=== PATIENT | female | born 1960 | race American Indian/Alaskan Native ===

== ENCOUNTER 2018-09-27 07:59 | Inpatient (IN) | payer OTHER ==
[2018-09-02 13:22] VITALS: BMI 26.2
[2018-09-27] MEDS ORDERED: Lactated Ringer's 1,000 ML IV ONE ×3 (09:00→18:00)
--- NOTE | 2018-09-27 09:20 | CP.PCM.HP ---
History of Present Illness - History of Present Illness History of Present Illness: Orthopedic note Dr. Allen 58F complains of worsening right hip pain failed conservative mgmt and elected for THR. Patient had preoperative clearance by PMD Dr. Montanez, also was seen by Dr. Brito with normal echo and optimized per cardiology, also seen by Dr. Jamison found to have benign neutropenia and cleared for OR. PMH: glaucoma, cataracts, macular degen PSH: cyst excision scalp, cataract All: PCN No recent illness, no history of bleeding disorder or blood clots, no hx CA/CAD, CVA, stents, seizure disorder Present on Admission - Present on Admission Any Indicators Present on Admission: No Review of Systems - Review of Systems All systems: reviewed and no additional remarkable complaints except - Musculoskeletal Musculoskeletal: As Per HPI Past Patient History - Past Medical History & Family History Past Medical History?: Yes Past Family History: Reviewed and not pertinent - Past Social History Smoking Status: Never Smoked - CARDIAC Hx Cardiac Disorders: No - PULMONARY Hx Respiratory Disorders: No - NEUROLOGICAL Hx Neurological Disorder: No - HEENT Hx HEENT Problems: Yes Hx Cataracts: Yes Hx Glaucoma: Yes Hx Macular Degeneration: Yes - RENAL Hx Chronic Kidney Disease: No - ENDOCRINE/METABOLIC Hx Endocrine Disorders: No - HEMATOLOGICAL/ONCOLOGICAL Hx Blood Disorders: No - INTEGUMENTARY Hx Dermatological Problems: No - MUSCULOSKELETAL/RHEUMATOLOGICAL Hx Musculoskeletal Disorders: Yes Hx Arthritis: Yes (general,hips) - GASTROINTESTINAL Hx Gastrointestinal Disorders: No - GENITOURINARY/GYNECOLOGICAL Hx Genitourinary Disorders: No - PSYCHIATRIC Hx Psychophysiologic Disorder: No - SURGICAL HISTORY Hx Surgeries: Yes (scalp cyst excision) Hx Cataract Extraction: Yes (right) Hx Eye Surgery: Yes Other/Comment: cyst on scalp - ANESTHESIA Hx Anesthesia: Yes Hx Anesthesia Reactions: No Meds Allergies/Adverse Reactions: Allergies Allergy/AdvReac Type Severity Reaction Status Date / Time Penicillins Allergy RASH Verified 09/27/18 09:04 Physical Exam - Constitutional Appears: Well, No Acute Distress - Head Exam Head Exam: ATRAUMATIC - Neck Exam Neck exam: Positive for: Full Rom, Normal Inspection - Respiratory Exam Respiratory Exam: NORMAL BREATHING PATTERN - Cardiovascular Exam Additional comments: +ROM ankle/toes/sensation intact, +DP/PT Pulses, calves soft NT neg homans - Expanded Lower Extremities Exam Right Hip exam: shortening Ankle exam: FULL ROM, NORMAL INSPECTION - Neurological Exam Neurological exam: Alert, Oriented x3 - Psychiatric Exam Psychiatric exam: Normal Affect, Normal Mood - Skin Skin Exam: Dry, Intact, Normal Color, Warm Results - Impressions Impression: Patient Name / ID : JOANNA BOWEN / [id number] Exam Date : 08/06/2018 09:36:30 ( Approved ) Study Comment : Sex / Age : F / 58Y Creator : Garrick Mcintyre MD Dictator : Garrick Mcintyre MD [employer] Sawyer : Cold Water Machine Operator : Garrick Mcintyre MD Approver2 : Report Date : 08/09/2018 14:12:48 My Comment : Date of service: 08/06/2018 PROCEDURE: CT RIGHT HIP WITHOUT CONTRAST HISTORY: [facility] M16.11 COMPARISON: None available. TECHNIQUE: A volumetric CT acquisition through the right hip joint was performed and high- resolution with reformatted dataset provided using various algorithms in multiple planes. Intravenous contrast was not administered as per referring physician request and protocol. Radiation dose:Total exam DLP = 1105.47 mGy-cm. This CT exam was performed using one or more of the following dose reduction techniques: Automated exposure control, adjustment of the mA and/or kV according to patient size, and/or use of iterative reconstruction technique. FINDINGS: Late stage osteoarthritis of the right hip joint identified including mild to moderate protrusio. There is a centrally no residual joint space remaining and extensive subchondral cyst formation is appreciated involving both sides of the right hip joint. Gross osteophyte development is appreciated at superior and inferior margins of the right hip joint. No fracture is seen throughout the pelvis right or left hip joints. [id number]-[id number] left hip osteoarthritis is appreciated with moderate to severe bilateral sacroiliac osteoarthritis present. No destructive bony lesions appreciated exclusive of osteoarthritis pattern described above throughout the pelvic joints. Iliac bones otherwise appear intact as well as the sacrum. Diffuse osteopenia indicates an element of osteoporosis most likely but clinical correlation is required. Local soft tissues appear diffusely unremarkable extrinsic to the pelvis. However, within the pelvis, nonacute sigmoid diverticulosis identified and partially calcified exophytic fibroid seen related to the lower uterine segment uterus anteriorly. Note is made of advanced osteoarthritis involving the bilateral knees with the medial and patellofemoral compartments most severely affected. No definite fracture or dislocation identified throughout the examination. IMPRESSION: 1. Late stage osteoarthritis right hip joint including [id number] protrusio. No acute fracture or dislocation. 2. Liju-an-xgaccwoa left hip joint osteoarthritis with moderate to severe bilateral sacroiliac degenerative change. 3. Advanced tricompartmental osteoarthritis bilateral knees, symmetric. 4. soft tissue findings as discussed above. Assessment & Plan (1) Primary osteoarthritis of right hip Assessment and Plan: NPO for OR T&C medical notes and labs on chart, reviewed Status: Acute (2) Intrapelvic protrusion of right acetabulum Status: Acute
[2018-09-27 09:22] LABS: BASO % 0.8 % (0.0-2.0); EOS # 0.1 K/uL (0.0-0.7); EOS % 1.4 % (0.0-4.0); HEMOGLOBIN 12.8 g/dL (12.0-16.0); LYMPH % 25.7 % (20.0-40.0); MEAN CELL VOLUME 96.6 fl (81.0-99.0); MEAN CORPUSCULAR HGB CONC 33.1 g/dL (33.0-37.0); MEAN PLATELET VOLUME 8.6 fl (7.2-11.7); MONO # 0.4 K/uL (0.0-0.8); MONO % 10.7 % (0.0-10.0); NEUT # 2.5 K/uL (1.8-7.0); NEUT % 61.4 % (50.0-75.0); RBC 4.01 Mil/uL (3.80-5.20); RED CELL DISTRIBUTION WIDTH 13.9 % (11.5-14.5); WHITE BLOOD COUNT 4.1 K/uL (4.8-10.8)
[2018-09-27 09:41] LABS: BLOOD UREA NITROGEN 10 mg/dl (7-17); CALCIUM 9.8 mg/dL (8.4-10.2); GFR NON-AFRICAN AMERICAN > 60
[2018-09-27 10:20] LABS: INR 1.2; PROTHROMBIN TIME 13.1 Seconds (9.8-13.1)
[2018-09-27 10:21] LABS: PARTIAL THROMBOPLASTIN TIME 29.3 Seconds (25.6-37.1)
[2018-09-27] MEDS ORDERED: Bacitracin Ointment 30 GM TUBE ONE (13:01)
[2018-09-27] MEDS ORDERED: Bisacodyl 5mg EC Tab PO PRN (13:02)
[2018-09-27] MEDS ORDERED: Oxycodone/Acetaminophen 5/325 mg Tab PO PRN ×3 (13:08→13:09)
[2018-09-27] MEDS ORDERED: Sodium Chloride 0.9% 1,000 ML IV SCH (13:15)
[2018-09-27] MEDS ORDERED: Bupivacaine 0.5% 50 ML IJ ONE (15:10)
[2018-09-27] MEDS ORDERED: Sodium Chloride 0.9% Inj (10mL) IV ONE (15:10)
[2018-09-27] MEDS ORDERED: EPINEPHrine 1 mg/ml (1:1000) Inj IM ONE (15:10)
[2018-09-27] MEDS ORDERED: EPINEPHrine 1 mg/ml (1:1000) Inj ONE (15:11)
[2018-09-27] MEDS ORDERED: Morphine 1 mg/ml preservative-free Inj(Duramorph) ONE (15:11)
[2018-09-27] MEDS ORDERED: Bupivacaine 0.5% Inj(30mL) ONE (15:11)
[2018-09-27] MEDS ORDERED: Sodium Chloride 0.9% 20 ML IV ONE (15:11)
--- NOTE | 2018-09-27 16:01 | PCM.SURG1 ---
Surgeon's Initial Post Op Note - Surgeon's Notes Surgeon: Krystal Allen MD Osha Inspector: Marquez Saucedo PA-C; Anjana Le PA-C Type of Anesthesia: General Endo Pre-Operative Diagnosis: Right hip OA Operative Findings: see op report Post-Operative Diagnosis: same as pre-op dx Operation Performed: R THR Specimen/Specimens Removed: right hip femoral head and soft tissue Estimated Blood Loss: EBL {In ML}: 400 Date of Surgery/Procedure: 09/27/18 Time of Surgery/Procedure: 14:30
[2018-09-27] MEDS ORDERED: Dexamethasone 4 mg/1 ml IVP PRN (16:22)
[2018-09-27] MEDS ORDERED: HYDROmorphone 0.5 mg/0.5 ml ISec IVP PRN (16:22)
[2018-09-27] MEDS ORDERED: Naloxone 0.4 mg/ml Inj (Adult) IVP PRN (16:25)
[2018-09-27] MEDS ORDERED: Lactated Ringer's 1,000 ML IV SCH (16:30)
--- NOTE | 2018-09-27 17:58 | CP.PCM.PN ---
Subjective - Date & Time of Evaluation Date of Evaluation: 09/27/18 Time of Evaluation: 22:22 - Subjective Subjective: 58 yo admitted for R THR 2 to severe osteoarthritis Objective - Vital Signs/Intake and Output Vital Signs (last 24 hours): Temp Pulse Resp BP Pulse Ox 96.5 F L 75 12 183/84 H 99 09/27/18 16:05 09/27/18 10:05 09/27/18 10:05 09/27/18 10:05 09/27/18 10:05 Intake and Output: 09/27/18 09/27/18 06:59 18:59 Intake Total 1700 Balance 1700 - Medications Medications: Current Medications Aspirin (Aspirin) 325 mg PO BID [facility] Bisacodyl (Dulcolax) 10 mg PO HS PRN PRN Reason: Constipation Celecoxib (Celebrex) 200 mg PO DAILY [facility] Dexamethasone (Decadron Inj) 4 mg IVP ONCE PRN PRN Reason: Nausea/Vomiting Stop: 09/27/18 18:23 Docusate Sodium (Colace) 100 mg PO BID [facility] Hydromorphone HCl (Dilaudid) 0.5 mg IVP Q5M PRN PRN Reason: Pain, severe (8-10) Stop: 09/27/18 18:22 Hydromorphone HCl (Dilaudid 0.2 Mg/Ml [facility]) 0 mg IV PRN PRN; Protocol PRN Reason: Pain, severe (8-10) Clindamycin Phosphate (Cleocin) 600 mg in 50 mls @ 100 mls/hr IVPB Q8H [facility]; Protocol Sodium Chloride (Sodium Chloride 0.9%) 1,000 mls @ 60 mls/hr IV .[id number] [facility] Stop: 09/28/18 05:54 Lactated Ringer's (Lactated Ringer's) 1,000 mls @ 125 mls/hr IV .Q8H [facility] Ketorolac Tromethamine (Toradol) 15 mg IVP Q6 [facility] Stop: 09/29/18 10:01 Metoclopramide HCl (Reglan) 10 mg IVP ONCE PRN PRN Reason: Nausea/Vomiting Stop: 09/27/18 18:23 Naloxone HCl (Narcan) 0.1 mg IVP Q2M PRN PRN Reason: Sedation Ondansetron HCl (Zofran Inj) 4 mg IVP Q6 PRN PRN Reason: Nausea/Vomiting Ondansetron HCl (Zofran Inj) 4 mg IVP ONCE PRN PRN Reason: Nausea/Vomiting Stop: 09/27/18 18:23 Oxycodone HCl (Oxycontin Extended Release Tab) 10 mg PO Q12 [facility] Stop: 09/30/18 21:01 Oxycodone/Acetaminophen (Percocet 5/325 Mg Tab) 1 tab PO Q4 PRN PRN Reason: Pain, Mild (1-3) Stop: 09/30/18 13:09 Oxycodone/Acetaminophen (Percocet 5/325 Mg Tab) 2 tab PO Q4 PRN PRN Reason: Pain, moderate (4-7) Stop: 09/30/18 13:10 Oxycodone/Acetaminophen (Percocet 5/325 Mg Tab) 2 tab PO Q4 PRN PRN Reason: Pain, severe (8-10) Stop: 09/30/18 13:10 - Labs Labs: 09/27/18 09:14 09/27/18 09:14 PT 13.1 Seconds (9.8-13.1) 09/27/18 09:30 INR 1.2 09/27/18 09:30 APTT 29.3 Seconds (25.6-37.1) 09/27/18 09:30 - Respiratory Exam Respiratory Exam: Wheezes, NORMAL BREATHING PATTERN - Cardiovascular Exam Cardiovascular Exam: REGULAR RHYTHM - GI/Abdominal Exam GI & Abdominal Exam: Normal Bowel Sounds Assessment and Plan - Assessment and Plan (Free Text) Assessment: Osteoarthritis severe R THR Hx benign neutrpenia
[2018-09-27] MEDS ORDERED: Influenza Vaccine (5 YR UP)/PF 60 MCG/0.5 ML SYR IM ONE (19:41)
[2018-09-27] MEDS ORDERED: Pneumococcal 23-Valent Vaccine IM ONE (19:43)
[2018-09-27] MEDS ORDERED: Clindamycin 600mg/50ml D5W 600 MG/50 ML VIAL IVPB SCH (20:00)
--- NOTE | 2018-09-27 20:38 | CARD ---
APPROVED REPORT Date of service: 09/27/2018 EKG Measurement Heart [id number] NV 134P [id number] <Conclusion> Ectopic atrial rhythm Voltage criteria for left ventricular hypertrophy Abnormal ECG
[2018-09-27] MEDS: oxyCODONE 10 mg ER Tab (oxyCONTIN) PO SCH (21:00)
[2018-09-27] MEDS: Clindamycin 600mg/50ml D5W 600 MG/50 ML VIAL IVPB SCH (22:12)
--- NOTE | 2018-09-28 00:47 | OP ---
PROCEDURE DATE: 09/27/2018 SURGEON: Krystal Allen MD MACHINE ICER: Marquez Saucedo PA-C PREOPERATIVE DIAGNOSIS: Right hip protrusio with advanced osteoarthritis. POSTOPERATIVE DIAGNOSIS: Right hip protrusio with advanced osteoarthritis. PROCEDURE: Right total hip replacement. IMPLANTS SIZE: Platter Accolade II 52 mm cup, size 2 stem with standard offset, MDM dual mobility liner with 0 neck length. ANESTHESIA TYPE: General. ESTIMATED BLOOD LOSS: 300 mL. COMPLICATIONS: None. HISTORY: Patient with longstanding history of right hip pain refractory of conservative management. X-ray had shown significant loss of joint space. After the failure of extensive conservative management, I had offered the patient the treatment option of total hip replacement. I reviewed the risk and benefits of the surgery with the patient in detail. The risks include, but not limited to bleeding, infection, nerve vessel damage, continuous pain, blood loss, instability, dislocation, iatrogenic fracture, blood clots, need for further surgery, and even . The patient fully understood the risks and benefits and opted to proceed. Patient underwent necessary preoperative medical workup and once medically cleared, was scheduled for the procedure. DESCRIPTION OF PROCEDURE: On the day of the surgery, the patient was admitted to preoperative holding area. A laterality sheet was completed, confirming correct operative site. An informed consent was signed from the patient and the correct operative hip was marked. Patient was brought into the operating room table. He underwent general anesthesia. Afterwards, the patient was placed on the operating room table in lateral decubitus position. All the bony prominences were well padded and an axillary roll was also placed. The hip was draped and prepped in the standard sterile manner. Timeout was completed, confirming correct operative site. We proceeded with Navigation assisted total hip replacement. Two pins were placed in the iliac crest to attach the antenna. Additional checkpoint was placed on the greater trochanter and on top of the acetabular roof. We utilized a standard postero-lateral approach. Using a #10 blade, a skin incision was made. The soft tissue dissection was taken down until the IT band fascia was identified incised along it's fibers. The short external rotators were exposed and excised with the capsule. It was tagged wit heavy sutures preserved for a later repair. Afterwards, the hip was dislocated and proposed neck cut was made. The Acetabulum was exposed using standard retractors. The remnant of torn labrum was excised along with pulvinar. The acetabulum was reamed using motorized reamers to the size that provide adequate depth and coverage. Next, size 52 cup was securely fixed in to the acetabular socket in appropriate version and inclination. A polyethylene liner was secured in to the acetabular cup. The femoral canal was exposed using standard retractors. Using the box chisel, lateral femoral neck was removed. Femoral canal was broached up to size 2 stem, which provide a secure fit and adequate fill of femoral canal. A standard offset trial neck was secured onto the broach. Different trial heads with variable neck lengths were secured onto the trial neck. The hip was reduced and taken through extensive range of motion to test stability, soft tissue tensioning and leg length. It was noted the dual mobility liner ceramic head with 0 neck length provide adequate stability, soft tissue tensioning and length. Next, size 2 stem with a standard offset was securely fixed into the femoral canal. Then a 36 mm ceramic head with dual mobility liner with 0 neck length was secured onto the neck of femoral stem. Hip was reduced and taken through final range of motion to assess for stability, soft tissue tensioning and leg length which was found to be satisfactory. Finally, the wound was copiously irrigated using pulse lavage solution. All loose bodies were removed. The short external rotators were repaired to greater trochanter using drill holes and heavy sutures. IT band fascia was tightly closed using heavy sutures and rest the wound was closed standard manner. Sterile dressing was applied. Patient was transferred to stretcher. Post-op instructions included posterior hip precautions. During this procedure, I was assisted by Marquez Saucedo PA-C, who assisted in positioning the patient on the operating room table as well as transferring the patient from the operating room table to the recovery room stretcher. In addition, Marquez Saucedo PA-C assisted me during the actual operative procedure by positioning, protecting critical neurovascular structures, exposure of the joint, and proper positioning of the implants. The presence of Marquez Saucedo PA-C as my operative admissions assistant was medically necessary to ensure the utmost safety of the patient in the pre, intra-, and post-operative periods. Imran Alejandro, MD
[2018-09-28] MEDS ORDERED: Simethicone 40 mg/0.6 ml Liquid (30 ml) PO PRN (01:54)
[2018-09-28] MEDS ORDERED: Simethicone 80 mg Chewtab PO PRN (02:01)
[2018-09-28] MEDS: Clindamycin 600mg/50ml D5W 600 MG/50 ML VIAL IVPB SCH ×3 (06:17→22:18)
[2018-09-28 07:48] LABS: HEMOGLOBIN 9.8 g/dL (12.0-16.0); MEAN CELL VOLUME 95.8 fl (81.0-99.0); MEAN CORPUSCULAR HEMOGLOBIN 32.7 pg (27.0-31.0); MEAN CORPUSCULAR HGB CONC 34.1 g/dL (33.0-37.0); RBC 3.01 Mil/uL (3.80-5.20); RED CELL DISTRIBUTION WIDTH 13.5 % (11.5-14.5); WHITE BLOOD COUNT 5.9 K/uL (4.8-10.8)
[2018-09-28 08:09] LABS: BLOOD UREA NITROGEN 12 mg/dl (7-17); CALCIUM 8.4 mg/dL (8.4-10.2); GFR NON-AFRICAN AMERICAN > 60
[2018-09-28] MEDS: oxyCODONE 10 mg ER Tab (oxyCONTIN) PO SCH ×2 (09:22→21:00)
--- NOTE | 2018-09-28 10:34 | RAD ---
PROCEDURE: Right Hip Radiographs. HISTORY: PT.IN OR COMPARISON: Pelvis CT 08/06/2018. FINDINGS: BONES: Interval right total replacement is identified. Hardware appears in good apparent position. Protrusio bone deformity is again evident at the right hip acetabulum with none at the left. JOINTS: Mild degenerative joint disease left hip joint, moderate bilateral sacroiliac joints. SOFT TISSUES: Popcorn like calcification at the right hemipelvis soft tissues may reflect exophytic fibroid or other pathology. OTHER FINDINGS: None. IMPRESSION: Interval right hip replacement with hardware in good apparent position. No acute fracture or dislocation either hip joint as imaged.
--- NOTE | 2018-09-28 13:19 | CP.PCM.PN ---
Subjective - Date & Time of Evaluation Date of Evaluation: 09/28/18 Time of Evaluation: 12:45 - Subjective Subjective: 58 yo F s/p RTHR POD#1 Pt seen and examined sitting in chair, in NAD Pt denies any current rt hip pain Pt reports is walking well with PT Pt denies SOB, chest pain, N/V/D, numbness/tingling RLE Objective - Vital Signs/Intake and Output Vital Signs (last 24 hours): Temp Pulse Resp BP Pulse Ox 98.3 F 76 20 117/76 98 09/28/18 09:00 09/28/18 09:00 09/28/18 09:00 09/28/18 09:00 09/28/18 09:00 - Medications Medications: Current Medications Bisacodyl (Dulcolax) 10 mg PO HS PRN PRN Reason: Constipation Celecoxib (Celebrex) 200 mg PO DAILY [facility] Last Admin: 09/28/18 09:22 Dose: 200 mg Docusate Sodium (Colace) 100 mg PO BID [facility] Last Admin: 09/28/18 09:22 Dose: 100 mg Enoxaparin Sodium (Lovenox) 40 mg SC ONCE ONE; Protocol Stop: 09/28/18 17:01 Enoxaparin Sodium (Lovenox) 40 mg SC DAILY [facility]; Protocol Hydromorphone HCl (Dilaudid 0.2 Mg/Ml Non Ferrous Material Handler) 0 mg IV PRN PRN; Protocol PRN Reason: Pain, severe (8-10) Last Admin: 09/27/18 18:30 Dose: 0.2 mg Lactated Ringer's (Lactated Ringer's) 1,000 mls @ 125 mls/hr IV .Q8H [facility] Last Admin: 09/28/18 00:30 Dose: Not Given Clindamycin Phosphate (Cleocin) 600 mg in 50 mls @ 100 mls/hr IVPB Q8@0600,1400,2200 [facility]; Protocol Last Admin: 09/28/18 06:17 Dose: 100 mls/hr Ketorolac Tromethamine (Toradol) 15 mg IVP Q6 [facility] Stop: 09/29/18 10:01 Last Admin: 09/28/18 11:49 Dose: Not Given Naloxone HCl (Narcan) 0.1 mg IVP Q2M PRN PRN Reason: Sedation Ondansetron HCl (Zofran Inj) 4 mg IVP Q6 PRN PRN Reason: Nausea/Vomiting Oxycodone HCl (Oxycontin Extended Release Tab) 10 mg PO Q12 [facility] Stop: 09/30/18 21:01 Last Admin: 09/28/18 09:22 Dose: 10 mg Oxycodone/Acetaminophen (Percocet 5/325 Mg Tab) 1 tab PO Q4 PRN PRN Reason: Pain, Mild (1-3) Stop: 09/30/18 13:09 Oxycodone/Acetaminophen (Percocet 5/325 Mg Tab) 2 tab PO Q4 PRN PRN Reason: Pain, moderate (4-7) Stop: 09/30/18 13:10 Oxycodone/Acetaminophen (Percocet 5/325 Mg Tab) 2 tab PO Q4 PRN PRN Reason: Pain, severe (8-10) Stop: 09/30/18 13:10 Simethicone (Mylicon Chew Tab) 80 mg PO Q8 PRN PRN Reason: Flatulence Last Admin: 09/28/18 02:12 Dose: 80 mg - Labs Labs: 09/28/18 05:30 09/28/18 05:30 PT 13.1 Seconds (9.8-13.1) 09/27/18 09:30 INR 1.2 09/27/18 09:30 APTT 29.3 Seconds (25.6-37.1) 09/27/18 09:30 - Constitutional Appears: Well, No Acute Distress - Respiratory Exam Respiratory Exam: Clear to Ausculation Bilateral, NORMAL BREATHING PATTERN - Cardiovascular Exam Cardiovascular Exam: REGULAR RHYTHM, RRR - Extremities Exam Additional comments: RLE: Hip dressing C/D/I Abduction pillow in place Calves soft and nontender b/l Normal ROM Rt ankle N/V intact distally Distal pulses wnl Assessment and Plan - Assessment and Plan (Free Text) Assessment: 58 yo F s/p RTHR POD#1 Plan: Pt doing well Pain Control DVT ppx- start lovenox 40mg daily today SCD b/l LE F/U daily labs PT/OT- WBAT RLE Discussed with Dr. Allen
[2018-09-28] MEDS ORDERED: Enoxaparin 40 mg Syringe SC ONE (17:00)
[2018-09-28] MEDS: Oxycodone/Acetaminophen 5/325 mg Tab PO PRN (19:44)
--- NOTE | 2018-09-28 20:50 | CP.PCM.PN ---
Subjective - Date & Time of Evaluation Date of Evaluation: 09/28/18 Time of Evaluation: 22:22 - Subjective Subjective: Doing well D/W son Objective - Vital Signs/Intake and Output Vital Signs (last 24 hours): Temp Pulse Resp BP Pulse Ox 98.2 F 91 H 20 99/70 L 96 09/28/18 17:00 09/28/18 17:00 09/28/18 17:00 09/28/18 17:00 09/28/18 17:00 - Medications Medications: Current Medications Acetaminophen (Tylenol 325mg Tab) 650 mg PO Q6 PRN PRN Reason: Pain, Mild (1-3) Bisacodyl (Dulcolax) 10 mg PO HS PRN PRN Reason: Constipation Celecoxib (Celebrex) 200 mg PO DAILY [facility] Last Admin: 09/28/18 09:22 Dose: 200 mg Docusate Sodium (Colace) 100 mg PO BID [facility] Last Admin: 09/28/18 17:01 Dose: 100 mg Enoxaparin Sodium (Lovenox) 40 mg SC DAILY [facility]; Protocol Home Med (Dorzolamide Hcl/Timolol Maleat [Dorzolamide-Timolol Eye Drops]) 1 drop EACHEYE BID [facility] Lactated Ringer's (Lactated Ringer's) 1,000 mls @ 125 mls/hr IV .Q8H [facility] Last Admin: 09/28/18 00:30 Dose: Not Given Clindamycin Phosphate (Cleocin) 600 mg in 50 mls @ 100 mls/hr IVPB Q8@0600,1400,2200 [facility]; Protocol Last Admin: 09/28/18 16:07 Dose: 100 mls/hr Ketorolac Tromethamine (Toradol) 15 mg IVP Q6 [facility] Stop: 09/29/18 10:01 Last Admin: 09/28/18 16:30 Dose: 15 mg Naloxone HCl (Narcan) 0.1 mg IVP Q2M PRN PRN Reason: Sedation Ondansetron HCl (Zofran Inj) 4 mg IVP Q6 PRN PRN Reason: Nausea/Vomiting Oxycodone HCl (Oxycontin Extended Release Tab) 10 mg PO Q12 [facility] Stop: 09/30/18 21:01 Last Admin: 09/28/18 09:22 Dose: 10 mg Oxycodone/Acetaminophen (Percocet 5/325 Mg Tab) 1 tab PO Q4 PRN PRN Reason: Pain, moderate (4-7) Stop: 10/01/18 15:46 Last Admin: 09/28/18 19:44 Dose: 1 tab Oxycodone/Acetaminophen (Percocet 5/325 Mg Tab) 2 tab PO Q4 PRN PRN Reason: Pain, severe (8-10) Stop: 10/01/18 15:47 Simethicone (Mylicon Chew Tab) 80 mg PO Q8 PRN PRN Reason: Flatulence Last Admin: 09/28/18 02:12 Dose: 80 mg - Labs Labs: 09/28/18 05:30 09/28/18 05:30 PT 13.1 Seconds (9.8-13.1) 09/27/18 09:30 INR 1.2 09/27/18 09:30 APTT 29.3 Seconds (25.6-37.1) 09/27/18 09:30 - Respiratory Exam Respiratory Exam: NORMAL BREATHING PATTERN - Cardiovascular Exam Cardiovascular Exam: REGULAR RHYTHM - GI/Abdominal Exam GI & Abdominal Exam: Normal Bowel Sounds Assessment and Plan - Assessment and Plan (Free Text) Assessment: S/P R THR POD #! OOB PT Incentive spirometry Lovenox
[2018-09-29] MEDS: Clindamycin 600mg/50ml D5W 600 MG/50 ML VIAL IVPB SCH ×3 (05:26→21:16)
[2018-09-29 08:01] LABS: ALBUMIN 2.9 g/dL (3.5-5.0); ALT/SGPT 44 U/L (9-52); AST/SGOT 46 U/L (14-36); BLOOD UREA NITROGEN 12 mg/dl (7-17); CALCIUM 8.4 mg/dL (8.4-10.2); GFR NON-AFRICAN AMERICAN > 60
[2018-09-29 08:22] LABS: HEMOGLOBIN 8.9 g/dL (12.0-16.0); MEAN CELL VOLUME 95.7 fl (81.0-99.0); MEAN CORPUSCULAR HEMOGLOBIN 32.9 pg (27.0-31.0); MEAN CORPUSCULAR HGB CONC 34.4 g/dL (33.0-37.0); RBC 2.71 Mil/uL (3.80-5.20); RED CELL DISTRIBUTION WIDTH 13.3 % (11.5-14.5); WHITE BLOOD COUNT 7.5 K/uL (4.8-10.8)
[2018-09-29] MEDS: Oxycodone/Acetaminophen 5/325 mg Tab PO PRN (08:38)
[2018-09-29] MEDS: Patient's Own Med (Dorzolamide Hcl/Timolol Maleat [Dorzolamide-Timolol Eye Drops] 1 DROP) EACHEYE SCH ×2 (08:53→16:35)
[2018-09-29] MEDS ORDERED: Enoxaparin 40 mg Syringe SC SCH (09:00)
[2018-09-29] MEDS: oxyCODONE 10 mg ER Tab (oxyCONTIN) PO SCH ×2 (10:50→21:00)
--- NOTE | 2018-09-29 17:44 | CP.PCM.PN ---
Subjective - Date & Time of Evaluation Date of Evaluation: 09/29/18 Time of Evaluation: 22:22 - Subjective Subjective: Above noted Hbg 8.9 Objective - Vital Signs/Intake and Output Vital Signs (last 24 hours): Temp Pulse Resp BP Pulse Ox 97.8 F 72 18 92/60 L 97 09/29/18 16:51 09/29/18 16:51 09/29/18 16:51 09/29/18 16:51 09/29/18 16:51 - Medications Medications: Current Medications Acetaminophen (Tylenol 325mg Tab) 650 mg PO Q6 PRN PRN Reason: Pain, Mild (1-3) Bisacodyl (Dulcolax) 10 mg PO HS PRN PRN Reason: Constipation Celecoxib (Celebrex) 200 mg PO DAILY [facility] Last Admin: 09/29/18 08:53 Dose: 200 mg Docusate Sodium (Colace) 100 mg PO BID [facility] Last Admin: 09/29/18 16:34 Dose: Not Given Enoxaparin Sodium (Lovenox) 40 mg SC DAILY [facility]; Protocol Last Admin: 09/29/18 08:52 Dose: 40 mg Home Med (Dorzolamide Hcl/Timolol Maleat [Dorzolamide-Timolol Eye Drops]) 1 drop EACHEYE BID [facility] Last Admin: 09/29/18 16:35 Dose: 1 drop Lactated Ringer's (Lactated Ringer's) 1,000 mls @ 125 mls/hr IV .Q8H [facility] Last Admin: 09/28/18 00:30 Dose: Not Given Clindamycin Phosphate (Cleocin) 600 mg in 50 mls @ 100 mls/hr IVPB Q8@0600,1400,2200 [facility]; Protocol Last Admin: 09/29/18 13:47 Dose: 100 mls/hr Naloxone HCl (Narcan) 0.1 mg IVP Q2M PRN PRN Reason: Sedation Ondansetron HCl (Zofran Inj) 4 mg IVP Q6 PRN PRN Reason: Nausea/Vomiting Oxycodone HCl (Oxycontin Extended Release Tab) 10 mg PO Q12 [facility] Stop: 09/30/18 21:01 Last Admin: 09/29/18 10:50 Dose: Not Given Oxycodone/Acetaminophen (Percocet 5/325 Mg Tab) 1 tab PO Q4 PRN PRN Reason: Pain, moderate (4-7) Stop: 10/01/18 15:46 Last Admin: 09/28/18 19:44 Dose: 1 tab Oxycodone/Acetaminophen (Percocet 5/325 Mg Tab) 2 tab PO Q4 PRN PRN Reason: Pain, severe (8-10) Stop: 10/01/18 15:47 Last Admin: 09/29/18 08:38 Dose: 2 tab Simethicone (Mylicon Chew Tab) 80 mg PO Q8 PRN PRN Reason: Flatulence Last Admin: 09/28/18 02:12 Dose: 80 mg - Labs Labs: 09/29/18 05:30 09/29/18 05:30 PT 13.1 Seconds (9.8-13.1) 09/27/18 09:30 INR 1.2 09/27/18 09:30 APTT 29.3 Seconds (25.6-37.1) 09/27/18 09:30 - Respiratory Exam Respiratory Exam: NORMAL BREATHING PATTERN - Cardiovascular Exam Cardiovascular Exam: REGULAR RHYTHM - GI/Abdominal Exam GI & Abdominal Exam: Normal Bowel Sounds Assessment and Plan - Assessment and Plan (Free Text) Assessment: S/P R THR POD #2 OOB PT Incentive spirometry Lovenox
[2018-09-30] MEDS: Oxycodone/Acetaminophen 5/325 mg Tab PO PRN ×2 (00:24→11:50)
[2018-09-30 06:38] LABS: HEMOGLOBIN 7.4 g/dL (12.0-16.0); MEAN CELL VOLUME 96.2 fl (81.0-99.0); MEAN CORPUSCULAR HEMOGLOBIN 32.3 pg (27.0-31.0); MEAN CORPUSCULAR HGB CONC 33.6 g/dL (33.0-37.0); RBC 2.28 Mil/uL (3.80-5.20); RED CELL DISTRIBUTION WIDTH 13.4 % (11.5-14.5); WHITE BLOOD COUNT 7.2 K/uL (4.8-10.8)
[2018-09-30] MEDS ORDERED: EPOETIN ALFA 10,000 UNIT/ML ML SC SCH (09:00)
--- NOTE | 2018-09-30 09:15 | CP.PCM.PN ---
Subjective - Date & Time of Evaluation Date of Evaluation: 09/30/18 Time of Evaluation: 08:00 - Subjective Subjective: Patient seen and examined at bedside comfortable. Pain is well controlled. No acute events overnight. HGB trending down. Denies CP/SOB/N/fever. Objective - Vital Signs/Intake and Output Vital Signs (last 24 hours): Temp Pulse Resp BP Pulse Ox 98.8 F 81 18 103/62 99 09/30/18 00:18 09/30/18 00:18 09/30/18 00:18 09/30/18 00:18 09/30/18 00:18 - Medications Medications: Current Medications Acetaminophen (Tylenol 325mg Tab) 650 mg PO Q6 PRN PRN Reason: Pain, Mild (1-3) Bisacodyl (Dulcolax) 10 mg PO HS PRN PRN Reason: Constipation Celecoxib (Celebrex) 200 mg PO DAILY [facility] Last Admin: 09/29/18 08:53 Dose: 200 mg Docusate Sodium (Colace) 100 mg PO BID [facility] Last Admin: 09/29/18 16:34 Dose: Not Given Enoxaparin Sodium (Lovenox) 40 mg SC DAILY [facility]; Protocol Last Admin: 09/29/18 08:52 Dose: 40 mg Home Med (Dorzolamide Hcl/Timolol Maleat [Dorzolamide-Timolol Eye Drops]) 1 drop EACHEYE BID [facility] Last Admin: 09/29/18 16:35 Dose: 1 drop Naloxone HCl (Narcan) 0.1 mg IVP Q2M PRN PRN Reason: Sedation Ondansetron HCl (Zofran Inj) 4 mg IVP Q6 PRN PRN Reason: Nausea/Vomiting Oxycodone HCl (Oxycontin Extended Release Tab) 10 mg PO Q12 [facility] Stop: 09/30/18 21:01 Last Admin: 09/29/18 21:00 Dose: Not Given Oxycodone/Acetaminophen (Percocet 5/325 Mg Tab) 1 tab PO Q4 PRN PRN Reason: Pain, moderate (4-7) Stop: 10/01/18 15:46 Last Admin: 09/28/18 19:44 Dose: 1 tab Oxycodone/Acetaminophen (Percocet 5/325 Mg Tab) 2 tab PO Q4 PRN PRN Reason: Pain, severe (8-10) Stop: 10/01/18 15:47 Last Admin: 09/30/18 00:24 Dose: 2 tab Simethicone (Mylicon Chew Tab) 80 mg PO Q8 PRN PRN Reason: Flatulence Last Admin: 09/28/18 02:12 Dose: 80 mg - Labs Labs: 09/30/18 05:20 09/29/18 05:30 PT 13.1 Seconds (9.8-13.1) 09/27/18 09:30 INR 1.2 09/27/18 09:30 APTT 29.3 Seconds (25.6-37.1) 09/27/18 09:30 - Extremities Exam Additional comments: R hip: Dressings CDI Incision CDI with karen, no drainage, no erythema sensation intact SP/DP/TN motor intact EHL/FHL/TA/G pedal pulses intact calves soft NT b/l Assessment and Plan (1) Primary osteoarthritis of right hip Assessment & Plan: POD#3 s/p R DANIA -recommend Transfuse PRBC's -PT/OT WBAT once medically cleared/stable -DVT ppx -dressings changed -posterior hip precautions, hip abd pillow while in bed -will follow -d/c planning -above d/w Dr. Allen in agreement Status: Acute
[2018-09-30] MEDS: Patient's Own Med (Dorzolamide Hcl/Timolol Maleat [Dorzolamide-Timolol Eye Drops] 1 DROP) EACHEYE SCH ×2 (09:34→16:31)
[2018-09-30] MEDS: oxyCODONE 10 mg ER Tab (oxyCONTIN) PO SCH ×2 (09:35→21:15)
[2018-09-30 12:14] LABS: IRON 16 ug/dL (37-170)
[2018-09-30 12:24] LABS: % IRON SATURATION 7 % (20-55); TOTAL IRON BINDING CAPACITY 224 ug/dL (250-450)
[2018-09-30] MEDS: Cholecalciferol 1,000 INTLU TAB PO SCH (15:34)
--- NOTE | 2018-09-30 20:26 | CP.PCM.PN ---
Subjective - Date & Time of Evaluation Date of Evaluation: 09/30/18 Time of Evaluation: 22:22 - Subjective Subjective: Hbg 7.4 Refusing transfusion Objective - Vital Signs/Intake and Output Vital Signs (last 24 hours): Temp Pulse Resp BP Pulse Ox 98.3 F 82 18 119/61 99 09/30/18 16:25 09/30/18 16:25 09/30/18 16:25 09/30/18 16:25 09/30/18 16:25 - Medications Medications: Current Medications Acetaminophen (Tylenol 325mg Tab) 650 mg PO Q6 PRN PRN Reason: Pain, Mild (1-3) Bisacodyl (Dulcolax) 10 mg PO HS PRN PRN Reason: Constipation Celecoxib (Celebrex) 200 mg PO DAILY [facility] Last Admin: 09/30/18 10:24 Dose: Not Given Cholecalciferol (Vitamin D) 2,000 intlu PO DAILY [facility] Last Admin: 09/30/18 15:34 Dose: 2,000 intlu Docusate Sodium (Colace) 100 mg PO BID [facility] Last Admin: 09/30/18 18:00 Dose: Not Given Enoxaparin Sodium (Lovenox) 40 mg SC DAILY [facility]; Protocol Last Admin: 09/29/18 08:52 Dose: 40 mg Epoetin Brian (Procrit) 10,000 unit SC [facility] Last Admin: 09/30/18 11:51 Dose: 10,000 unit Home Med (Dorzolamide Hcl/Timolol Maleat [Dorzolamide-Timolol Eye Drops]) 1 drop EACHEYE BID [facility] Last Admin: 09/30/18 16:31 Dose: 1 drop Iron Sucrose 100 mg/ Sodium (Chloride) 105 mls @ 105 mls/hr IVPB DAILY [facility] Last Admin: 09/30/18 11:50 Dose: 105 mls/hr Naloxone HCl (Narcan) 0.1 mg IVP Q2M PRN PRN Reason: Sedation Ondansetron HCl (Zofran Inj) 4 mg IVP Q6 PRN PRN Reason: Nausea/Vomiting Oxycodone HCl (Oxycontin Extended Release Tab) 10 mg PO Q12 [facility] Stop: 09/30/18 21:01 Last Admin: 09/30/18 09:35 Dose: Not Given Oxycodone/Acetaminophen (Percocet 5/325 Mg Tab) 1 tab PO Q4 PRN PRN Reason: Pain, moderate (4-7) Stop: 10/01/18 15:46 Last Admin: 09/30/18 11:50 Dose: 1 tab Oxycodone/Acetaminophen (Percocet 5/325 Mg Tab) 2 tab PO Q4 PRN PRN Reason: Pain, severe (8-10) Stop: 10/01/18 15:47 Last Admin: 09/30/18 00:24 Dose: 2 tab Simethicone (Mylicon Chew Tab) 80 mg PO Q8 PRN PRN Reason: Flatulence Last Admin: 09/28/18 02:12 Dose: 80 mg - Labs Labs: 09/30/18 05:20 09/29/18 05:30 PT 13.1 Seconds (9.8-13.1) 09/27/18 09:30 INR 1.2 09/27/18 09:30 APTT 29.3 Seconds (25.6-37.1) 09/27/18 09:30 - Respiratory Exam Respiratory Exam: NORMAL BREATHING PATTERN - Cardiovascular Exam Cardiovascular Exam: REGULAR RHYTHM - GI/Abdominal Exam GI & Abdominal Exam: Normal Bowel Sounds Assessment and Plan - Assessment and Plan (Free Text) Assessment: S/P R THR POD #2 OOB PT Incentive spirometry Lovenox Anemia 2 blood loss Fe Procrit T/C transfusion
[2018-10-01] MEDS: Oxycodone/Acetaminophen 5/325 mg Tab PO PRN ×2 (00:48→15:48)
[2018-10-01 06:06] VITALS: RESP 18
[2018-10-01 06:33] LABS: ALB/GLOB RATIO 0.9 (1.0-2.1); ALBUMIN 2.7 g/dL (3.5-5.0); ALT/SGPT 34 U/L (9-52); AST/SGOT 29 U/L (14-36); BLOOD UREA NITROGEN 9 mg/dl (7-17); CALCIUM 8.4 mg/dL (8.4-10.2); GFR NON-AFRICAN AMERICAN > 60
[2018-10-01 06:46] LABS: HEMOGLOBIN 7.5 g/dL (12.0-16.0); MEAN CELL VOLUME 96.2 fl (81.0-99.0); MEAN CORPUSCULAR HEMOGLOBIN 32.6 pg (27.0-31.0); MEAN CORPUSCULAR HGB CONC 33.9 g/dL (33.0-37.0); RBC 2.31 Mil/uL (3.80-5.20); RED CELL DISTRIBUTION WIDTH 13.5 % (11.5-14.5); WHITE BLOOD COUNT 7.1 K/uL (4.8-10.8)
[2018-10-01 08:14] VITALS: BP 115/66; TEMP 98.3
--- NOTE | 2018-10-01 08:37 | CP.PCM.PN ---
Subjective - Date & Time of Evaluation Date of Evaluation: 10/01/18 Time of Evaluation: 08:00 - Subjective Subjective: Patient seen and examined at bedside comfortable. Pain well controlled. Denies CP/SOB/N/V/fever. Tolerated PT well, VSS. Received IV iron yesterday. No other complaints. Objective - Vital Signs/Intake and Output Vital Signs (last 24 hours): Temp Pulse Resp BP Pulse Ox 98.3 F 77 18 115/66 97 10/01/18 08:13 10/01/18 08:13 10/01/18 08:13 10/01/18 08:13 10/01/18 08:13 - Medications Medications: Current Medications Acetaminophen (Tylenol 325mg Tab) 650 mg PO Q6 PRN PRN Reason: Pain, Mild (1-3) Bisacodyl (Dulcolax) 10 mg PO HS PRN PRN Reason: Constipation Celecoxib (Celebrex) 200 mg PO DAILY [facility] Last Admin: 09/30/18 10:24 Dose: Not Given Cholecalciferol (Vitamin D) 2,000 intlu PO DAILY [facility] Last Admin: 09/30/18 15:34 Dose: 2,000 intlu Docusate Sodium (Colace) 100 mg PO BID [facility] Last Admin: 09/30/18 18:00 Dose: Not Given Enoxaparin Sodium (Lovenox) 40 mg SC DAILY [facility]; Protocol Last Admin: 09/29/18 08:52 Dose: 40 mg Epoetin Brian (Procrit) 10,000 unit SC MWF [facility] Last Admin: 09/30/18 11:51 Dose: 10,000 unit Home Med (Dorzolamide Hcl/Timolol Maleat [Dorzolamide-Timolol Eye Drops]) 1 drop EACHEYE BID [facility] Last Admin: 09/30/18 16:31 Dose: 1 drop Iron Sucrose 100 mg/ Sodium (Chloride) 105 mls @ 105 mls/hr IVPB DAILY [facility] Last Admin: 09/30/18 11:50 Dose: 105 mls/hr Naloxone HCl (Narcan) 0.1 mg IVP Q2M PRN PRN Reason: Sedation Ondansetron HCl (Zofran Inj) 4 mg IVP Q6 PRN PRN Reason: Nausea/Vomiting Oxycodone/Acetaminophen (Percocet 5/325 Mg Tab) 1 tab PO Q4 PRN PRN Reason: Pain, moderate (4-7) Stop: 10/01/18 15:46 Last Admin: 09/30/18 11:50 Dose: 1 tab Oxycodone/Acetaminophen (Percocet 5/325 Mg Tab) 2 tab PO Q4 PRN PRN Reason: Pain, severe (8-10) Stop: 10/01/18 15:47 Last Admin: 10/01/18 00:48 Dose: 2 tab Simethicone (Mylicon Chew Tab) 80 mg PO Q8 PRN PRN Reason: Flatulence Last Admin: 09/28/18 02:12 Dose: 80 mg - Labs Labs: 10/01/18 05:30 10/01/18 05:30 PT 13.1 Seconds (9.8-13.1) 09/27/18 09:30 INR 1.2 09/27/18 09:30 APTT 29.3 Seconds (25.6-37.1) 09/27/18 09:30 - Extremities Exam Additional comments: R hip: Dressings CDI sensation intact SP/DP/TN motor intact EHL/FHL/TA/G pedal pulses intact calves soft NT b/l Assessment and Plan (1) Primary osteoarthritis of right hip Assessment & Plan: POD#4 s/p R DANIA -PT/OT WBAT -DVT ppx -posterior hip precautions, hip abd pillow while in bed -orthopedically stable for discharge once medically cleared -f/u in office within 7-10 days -above d/w Dr. Allen in agreement Status: Acute
[2018-10-01] MEDS: Cholecalciferol 1,000 INTLU TAB PO SCH (09:01)
[2018-10-01] MEDS: Patient's Own Med (Dorzolamide Hcl/Timolol Maleat [Dorzolamide-Timolol Eye Drops] 1 DROP) EACHEYE SCH ×2 (09:03→17:33)
[2018-10-01] MEDS ORDERED: Epoetin Alfa 20000 UNIT/ML Inj SC ONE (13:00)
[2018-10-01 13:58] LABS: FOLATE 10.1 ng/mL
--- NOTE | 2018-10-01 14:12 | CP.PCM.PCO ---
Assessment/Plan - Assessment/Plan Assessment (Free Text): Pt stable, heart S1S2, lungs clear, abdomen soft non-tender. Dressing to R hip c/d/i, neurovascular check intact. Patient ambulating well with PT, no distress, has walker at bedside. Patient seen and cleared for d/c home by Dr. Allen and Dr. Shanks after today's dose of Venofer and Procrit. Patient cleared by Dr. Montanez for d/c home. Pt to f/u with Dr. Montanez on for repeat hgb check and Dr. Shanks in 1 week. Pt has f/u appointment with Dr. Allen. Per Dr. Allen, pt to take ASA 325 bid x 6 weeks Rest of meds as per med rec, Rx given - Consults Consult Orders: Consultations
[2018-10-01 16:52] VITALS: PULSE 77; O2SAT 97
--- NOTE | 2018-10-01 20:45 | CP.PCM.PN ---
Subjective - Date & Time of Evaluation Date of Evaluation: 10/01/18 Time of Evaluation: 22:22 - Subjective Subjective: Hbg stable Objective - Vital Signs/Intake and Output Vital Signs (last 24 hours): Temp Pulse Resp BP Pulse Ox 98.3 F 77 18 115/66 97 10/01/18 16:51 10/01/18 16:51 10/01/18 16:51 10/01/18 16:51 10/01/18 16:51 - Labs Labs: 10/01/18 05:30 10/01/18 05:30 PT 13.1 Seconds (9.8-13.1) 09/27/18 09:30 INR 1.2 09/27/18 09:30 APTT 29.3 Seconds (25.6-37.1) 09/27/18 09:30 - Respiratory Exam Respiratory Exam: NORMAL BREATHING PATTERN - Cardiovascular Exam Cardiovascular Exam: REGULAR RHYTHM - GI/Abdominal Exam GI & Abdominal Exam: Normal Bowel Sounds Assessment and Plan - Assessment and Plan (Free Text) Assessment: S/P R THR POD #3 OOB PT Incentive spirometry Lovenox Anemia 2 blood loss Fe Procrit
== END 2018-10-01 17:15 | disposition home health service (06) | DRG 470 ==
LOC: H.OPSURG 07:59 → H.MEDSURG1 16:11
PROVIDERS: ADMIT Family Medicine Geriatric Medicine; ATTEND Family Medicine Geriatric Medicine
PROC: 0SR904A Replacement of Right Hip Joint with Ceramic on Polyethylene Synthetic Substitute, Uncemented, Open Approach (ICD-10-PCS; principal; 2018-09-27 14:30)
DX: M16.11 Unilateral primary osteoarthritis, right hip (principal); M17.0 Bilateral primary osteoarthritis of knee; H26.9 Unspecified cataract; D50.0 Iron deficiency anemia secondary to blood loss (chronic); D70.9 Neutropenia, unspecified; H35.30 Unspecified macular degeneration; H40.9 Unspecified glaucoma